=== PATIENT | female | born 1975 | race Caucasian/White ===

== ENCOUNTER 2016-11-11 12:44 | Day surgery (SDC) | payer OTHER ==
[2016-11-07 16:41] LABS: HEMATOCRIT 40.4 % (36.0-48.0); HEMOGLOBIN 13.5 g/dL (12.0-16.0)
[2016-11-07 16:56] LABS: BUN (BLOOD UREA NITROGEN) 10 MG/DL (6-23); CALCIUM, SERUM 8.9 MG/DL (8.5-10.4); CHLORIDE, SERUM 110 MMOL/L (96-112); CO2 (CARBON DIOXIDE) 26 MMOL/L (24-34); CREATININE 0.73 MG/DL (0.55-1.02); GFR AFRICAN AMERICAN 120 ML/MIN (>=60); GFR NON AFRICAN AMERICAN 104 ML/MIN (>=60); GLUCOSE, SERUM 135 MG/DL (60-99); POTASSIUM, SERUM 3.6 MMOL/L (3.5-5.3); SODIUM, SERUM 146 MMOL/L (135-148)
--- NOTE | ~2016-11-11 | OP ---
Record Of Operation [facility] [address] [place]. [address] NAME: ALBERT JUAREZ : 77 STATUS : [facility] PAT#: [id number] AGE: 40 ADM/REG DATE : 11/11/16 MR#: [id number] REPORT SERV DATE: 11/12/16 DICTATED BY: MG VICKERS DATE: 11/11/16 REPORT STATUS : Draft TRANSCRIBED BY: MODL DATE: 11/11/16 DATE OF PROCEDURE: 11/11/2016 PREOPERATIVE DIAGNOSIS: Chronic bilateral ethmoid and frontal sinusitis with right frontal headache. POSTOPERATIVE DIAGNOSIS: Chronic bilateral ethmoid and frontal sinusitis with right frontal headache. PROCEDURE: Bilateral endoscopic total ethmoidectomy with bilateral frontal sinusotomy with culture and irrigation of the right frontal sinus. SURGEON: Mg Vickers M.D. ANESTHESIA: General endotracheal. ESTIMATED BLOOD LOSS: 50 mL. INTRAOPERATIVE FLUIDS: 1 L crystalloid. INTRAOPERATIVE FINDINGS: Moderate amount of thickened mucosa throughout the ethmoid air cells on both sides, particularly involving the anterior ethmoid air cells on both sides, more so on the right side than the left. A thick mucoid drainage evacuated from the lateral aspect of the right frontal sinus. This material was collected in a Lukens trap and sent for routine culture. OPERATIVE PROCEDURE: The patient was identified in the holding room, transported to the operating room. In operating room, the patient placed on the operating table in supine position. Following induction of anesthesia, the patient was intubated without difficulty. Afrin-soaked pledgets were placed to the nose, bilaterally. The patient was prepped and draped in preparation for her nasal surgery. Beginning of the surgery was initiated on the right side. The right middle turbinate was lateralized for exposure for the ethmoid air cells. There was moderate inflammation of the tissue within the ethmoid air cells, particularly involving the anterior ethmoid air cells. The bone and inflamed soft tissue were removed from the anterior ethmoid air cells. There was additional thickened mucosa lining the ethmoid cavity on the right side which was likewise removed. There were also additional polypoid tissue and bone in the posterosuperior ethmoid sinuses which were likewise removed. With the assistance of the 30- and 70-degree scope, additional bone and soft tissue were removed from the area of the nasal frontal recess, extending into the frontal sinus. I was able to visualize a pocket extending into the frontal sinus, medially, on the right side; however, as was evident on the CT scan, the obstructed portion of the frontal sinus was laterally. On further dissecting bone in this area, a bony obstruction was removed from this area. Irrigation of the sinus resulted in a large amount of thick mucoid debris emanating from the sinus which was collected in a Lukens trap and sent for routine culture. Additional bone and soft tissue were removed from the sinus ostium with the assistance of visualization with the 70-degree scope. Once an adequate opening was Record Of Operation [facility] [id number] [place]. [address] NAME: ALBERT JUAREZ : 77 STATUS : [facility] PAT#: [id number] AGE: 40 ADM/REG DATE : 11/11/16 MR#: [id number] REPORT SERV DATE: 11/12/16 DICTATED BY: MG VICKERS DATE: 11/11/16 REPORT STATUS : Draft TRANSCRIBED BY: VALERIE DATE: 11/11/16 created into the lateral aspect of the right frontal sinus, a mini Propel splint was placed through this ostium. With the mini Propel splint well positioned, attention was turned to the left side. A left total ethmoidectomy and frontal sinusotomy was performed in a similar fashion to that described on the right side. On the left side, there was a single large opening created into the frontal sinus. The sinus was also evacuated; however, there was no purulent or mucoid debris identified within the sinus. A mini Propel splint was likewise placed into the frontal sinus on the left side. At the end of the operative procedure, there was no significant bleeding. Stammberger dressing was applied to the middle meatus on both sides. The patient did have narrowing of the nasal airway on both sides related to large inferior turbinates. A simple inferior turbinate outfracture was performed on both sides. The patient was subsequently awakened from anesthesia, extubated in the operating room, transported to the recovery room in good condition. The patient tolerated the procedure well. There were no apparent complications. Specimens included tissue from the ethmoid and frontal sinuses, bilaterally, with an aspirate from the right frontal sinus sent for routine culture. TF/MODL Mg Vickers M.D. / [id number] CC: Cherrie Sadler M.D.
[~2016-11-11 12:44] MED LIST: WELLXL300 PO; ZOL50 PO; [UNRECOGNIZED DRUG - OTHER] SL
== END 2016-11-11 19:58 | disposition home or self-care (01) ==
LOC: SDC 12:44
PROVIDERS: Otolaryngology
PROC: 09DU4ZZ Extraction of Right Ethmoid Sinus, Percutaneous Endoscopic Approach (ICD-10-PCS; 2016-11-11)
PROC: 099T4ZZ Drainage of Left Frontal Sinus, Percutaneous Endoscopic Approach (ICD-10-PCS; 2016-11-11)
PROC: 099S4ZZ Drainage of Right Frontal Sinus, Percutaneous Endoscopic Approach (ICD-10-PCS; 2016-11-11)
PROC: 09DV4ZZ Extraction of Left Ethmoid Sinus, Percutaneous Endoscopic Approach (ICD-10-PCS; principal; 2016-11-11 15:00)
DX: J32.2 Chronic ethmoidal sinusitis (principal); J32.1 Chronic frontal sinusitis; J33.8 Other polyp of sinus; F32.9 Major depressive disorder, single episode, unspecified; F17.210 Nicotine dependence, cigarettes, uncomplicated; Z88.5 Allergy status to narcotic agent; Z88.8 Allergy status to other drugs, medicaments and biological substances; Z79.899 Other long term (current) drug therapy
CPT/HCPCS: 80048; 85014; 85018; 87015; 87070; 87075; 87102; 87116; 87205; 88305; 93005; A9270-GY; J1956; J2250; J2270; J2405; J2710; J3010